=== PATIENT | female | born 1980 | race Caucasian/White ===

== ENCOUNTER 2021-07-15 18:51 | Emergency (ER) | payer BC, MEDICAID, SELFPAY ==
[2021-07-15] VITALS (14 sets, daily range): BP systolic 118–126; BP diastolic 63–77; PULSE 80–98; RESP 15–23; TEMP 37.4; O2SAT 95–100
--- NOTE | ~2021-07-15 | XR_ITS ---
EXAMINATION: XR chest 2V DATE: 07/15/2021 19:33 INDICATION: Chest pain TECHNIQUE: PA and lateral views of the chest are obtained. COMPARISON: None available FINDINGS: The lungs are free of acute opacities. There is no pleural effusion or pneumothorax. The ca rdiomediastinal silhouette is normal. There is mild thoracic spondylosis. IMPRESSION: 1. No acute cardiopulmonary abnormality. Reviewed, dictated and finalized at location F. SIDE GRINDER
--- NOTE | ~2021-07-15 | CT_ITS ---
EXAMINATION: CT abdomen pelvis w con INDICATION: Epigastric pain TECHNIQUE: Computed tomographic images of the abdomen and pelvis were obtained after the administrati on of 100 cc of Omnipaque 350 intravenous contrast. The dose-length product (DLP) was 501.85 mGy-cm. Automated exposure control and iterative reconstruction technique were employed. COMPARISON: None available FINDINGS: The lung bases are clear. The heart size is normal. Motion artifact limits evaluation of th e upper abdomen. There is a 3.2 cm hypoattenuating lesion of the right hepatic lobe which appears to demonstrate interrupted peripheral nodular enhancement. The spleen, pancreas, gallbladder, adrenal gl ands, and kidneys are grossly normal. No pathologically enlarged abdominal or pelvic lymph nodes are identified. There is no free intraperitoneal gas or evidence of bowel obstruction. The appendix is no rmal. There is an umbilical hernia containing a short segment of nonobstructed small bowel. IMPRESSION: 1. No CT correlate for the patient's symptoms, examination somewhat limited by motion artifact. 2. Probable hemangioma of the right hepatic lobe, evaluation limited by motion. Follow-up with noneme rgent ultrasound is recommended. Reviewed, dictated and finalized at location F. IC FINISHER IMPRESSION: 1. No CT correlate for the patient's symptoms, examination somewhat limited by motion artifact. 2. Probable hemangioma of the right hepatic lobe, evaluation limited by motion. Follow-up with nonemergent ultrasound is recommended.
--- NOTE | 2021-07-15 18:57 | ECG_ITS ---
Measurements Intervals [place] Rate: 90 P: 76 CO: 157 QRS: 95 QRSD: 95 T: 58 QT: 350 QTc: 430 Interpretive Statements SINUS RHYTHM RIGHT AXIS DEVIATION DELAYED PRECORDIAL R/S TRANSITION BORDERLINE ST-T WAVE ABNORMALITY- HIGH LATERAL LEADS BASELINE ARTIFACT- I, II, III, AVR, AVL, AVF, V1, V3-V6 BORDERLINE ECG Electronically Signed On 07-15-2021 20:29:42 [employer] by Fred Garcia D.O.
[2021-07-15 19:14] LABS: Basophils Percent Auto 0.3 % (0.2-1.2); Eosinophils Absolute Auto 0.1 K/mm3 (0-0.3); Eosinophils Percent Auto 0.9 % (0-4.4); Hematocrit 38.6 % (37.0-47.0); Hemoglobin 12.8 g/dL (12.0-15.0); Immature Granulocyte Absolute 0.02 K/mm3 (0.00-0.031); Immature Granulocyte Percent A 0.2 % (0-0.5); Lymphocytes Absolute Auto 3.79 K/mm3 (0.9-3.2); Lymphocytes Percent Auto 32.1 % (18.3-44.2); Mean Corpuscular HGB Conc 33.2 g/dl (32-36); Mean Corpuscular Hemoglobin 29.6 pg (26-34); Mean Corpuscular Volume 89.4 fl (80-100); Mean Platelet Volume 8.9 fl (7.4-10.4); Monocytes Absolute Auto 0.8 K/mm3 (0.1-0.6); Monocytes Percent Auto 6.4 % (2.6-8.5); Neutrophils Absolute Auto 7.1 K/mm3 (1.3-6.7); Neutrophils Percent Auto 60.1 % (45.5-73.1); Platelet Count Result 389 k/mm3 (150-375); Red Blood Count 4.32 M/mm3 (4.2-5.4); Red Cell Distribution Width 13.1 % (11.5-14.5); White Blood Count 11.8 K/mm3 (4.5-10.0)
[2021-07-15 19:24] LABS: Alanine Aminotransferase 19 U/L (4-35); Albumin Level 4.4 g/dL (3.5-5.1); Alkaline Phosphatase 58 U/L (38-126); Anion Gap 8 mmol/L (8-16); Aspartate Amino Transferase 25 U/L (14-36); Bilirubin,Total 0.3 mg/dL (0.2-1.3); Blood Urea Nitrogen 11 mg/dL (7-17); Calcium 9.4 mg/dL (8.4-10.2); Carbon Dioxide 28 mmol/L (22-30); Chloride 99 mmol/L (98-107); Estimated CRCL calculation 108 ml/min; Estimated Glomerular Filt Rate > 60; Glucose 135 mg/dL (65-110); Lipase 110 U/L (23-300); Potassium 3.3 mmol/L (3.4-5.0); Sodium 135 mmol/L (137-145)
[2021-07-15] MEDS: ASPIRIN 81 MG CHEWABLE TABLET 324 MG PO (19:24)
[2021-07-15 19:26] LABS: Prothrombin Time 12.9 Seconds (11.1-14.7)
[2021-07-15 19:27] LABS: Partial Thromboplastin Time 34.1 SECONDS (22.3-36.8)
[2021-07-15 19:35] LABS: Troponin I < 0.012 ng/mL (0.000-0.034)
--- NOTE | 2021-07-15 19:42 | ED.GENADULT ---
HPI - General Adult General Chief complaint: Chest Pain Stated complaint: chest pain x 1 week Time Seen by Provider: 07/15/21 18:57 History of Present Illness HPI narrative: Patient is a 40-year-old female who presents ER with epigastric discomfort. Intermittent over the last month but has become more frequent over the last week. May be occurring about 12 times a day. Sharp pain that lasts less than a second. It'll radiate to her back. No nausea or vomiting. No fevers chills or sweats. Associated with eating. No alleviating factors. No exertional chest pain. She also reports loose stools beginning today. Related Data Home Medications Medication Instructions Recorded Confirmed No Home Medications 07/15/21 07/15/21 Allergies Allergy/AdvReac Type Severity Reaction Status Date / Time No Known Allergies Allergy Unverified 06/18/17 05:01 Review of Systems Review of Systems: All systems reviewed & are unremarkable except as noted in HPI and below Constitutional: Constitutional: Denies chills, Denies fever(s) and Denies weakness ENT: Denies nasal congestion and Denies sore throat Cardiovascular: Cardiovascular: Denies chest pain, Denies rapid heart rate and Denies radiating jaw, neck or arm pain Respiratory: Respiratory: Denies cough and Denies dyspnea Gastrointestinal: Gastrointestinal: Reports abdominal pain, Reports diarrhea, Denies nausea and Denies vomiting Genitourinary: Genitourinary: Denies nocturia, Denies dysuria and Denies flank pain PMFSH Past Medical History Medical History (Updated 07/15/21 @ 21:25 by Miguel A Mei MD) Anxiety Depression Surgical History Surgical History (Updated 07/15/21 @ 19:46 by Miguel A Mei MD) No pertinent past surgical history Family History Family History (Updated 01/27/14 @ 07:13 by DOCTOR UNKNOWN) Mother Family history of mental disorder Father Family history of mental disorder Depression Grandparent Family history of heart disease in male family member before age 55 Other Family history of dementia Social History Social History Smoking status: Never smoker Alcohol intake: never Exam Narrative: GENERAL: Well-appearing, well-nourished, and in no acute distress. HEAD: Normocephalic, atraumatic. CHEST: Clear to auscultation. No respiratory distress. HEART: Regular rate and rhythm. Normal peripheral pulses. ABDOMEN: Soft, nontender, nondistended. EXTREMITIES: Normal range of motion. No edema. SKIN: Warm, dry, no rash. NEURO: Alert and oriented x3. PSYCH: Normal mood and affect. Course Course Emergency Course: Patient informed results. Declined GI cocktail. Has follow-up with PCP tomorrow. Suspect biliary colic. Ultrasound not available. Vital Signs Vital signs: Vital Signs Temperature 99.3 F 07/15/21 18:58 Pulse Rate 98 07/15/21 18:58 Respiratory Rate 18 07/15/21 18:58 Blood Pressure 126/71 07/15/21 18:58 Pulse Oximetry 100 07/15/21 18:58 Temperature 99.3 F 07/15/21 18:58 Pulse Rate 85 07/15/21 20:37 Respiratory Rate 18 07/15/21 20:37 Blood Pressure 124/70 07/15/21 20:37 Pulse Oximetry 100 07/15/21 20:37 Medical Decision Making Vital Signs Vital Signs: Vital Signs Temperature 99.3 F 07/15/21 18:58 Pulse Rate 98 07/15/21 18:58 Respiratory Rate 18 07/15/21 18:58 Blood Pressure 126/71 07/15/21 18:58 Pulse Oximetry 100 07/15/21 18:58 Temperature 99.3 F 07/15/21 18:58 Pulse Rate 85 07/15/21 20:37 Respiratory Rate 18 07/15/21 20:37 Blood Pressure 124/70 07/15/21 20:37 Pulse Oximetry 100 07/15/21 20:37 Lab Data Result diagrams: 07/15/21 19:08 07/15/21 19:09 Labs: Lab Results 07/15/21 07/15/21 07/15/21 Range/Units 19:08 19:09 19:09 WBC 11.8 H (4.5-10.0) K/mm3 RBC 4.32 (4.2-5.4) M/mm3 Hgb 12.8 (12.0-15.0) g/dL Hct 38.6 (37.0-47.0) % MCV 89.4 (80-100) fl MCH 29.
== END 2021-07-15 21:40 | disposition home or self-care (01) ==
PROVIDERS: Emergency Medicine; Emergency Provider Emergency Medicine; PCP Nurse Practitioner
DX: R10.13 Epigastric pain (principal); R94.31 Abnormal electrocardiogram [ECG] [EKG]
CPT/HCPCS: 36415; 71046; 74177; 80053; 81025; 83690; 84484; 85025; 85610; 85730; 93005; 99284; A9270; Q9967